=== PATIENT | male | born 1975 | race Caucasian/White ===

== ENCOUNTER 2017-05-18 10:02 | Emergency (ER) | payer MEDICAID, OTHER, SELFPAY ==
[~2017-05-18] VITALS: Ht 180.3 cm; Wt 59.7 kg
[2017-05-18] MEDS ORDERED: SODIUM CHLORIDE FLUSH 10ML SYR IVF ONE (10:30)
[2017-05-18] MEDS ORDERED: SODIUM CHLORIDE 0.9% 1,000ML IVBOLUS ONE (10:30)
[2017-05-18] MEDS ORDERED: THIAMINE 100MG TABLET PO ONE (10:30)
[2017-05-18] MEDS ORDERED: KETOROLAC 60 MG/2 ML IV ONE (10:30)
[2017-05-18] MEDS ORDERED: THIAMINE 100MG TABLET ONE (10:46)
[2017-05-18] MEDS ORDERED: KETOROLAC 30 MG/1 ML ONE (10:46)
[2017-05-18 11:03] LABS: ALBUMIN 3.7 g/dL (3.4-5.0); ANION GAP 12 mmol/L (5-15); CALCIUM 8.5 mg/dL (8.5-10.1); CHLORIDE 104 mmol/L (98-107)
[2017-05-18 11:04] LABS: CREATININE 1.03 mg/dL (0.7-1.3)
[2017-05-18 11:50] LABS: BASOPHILS # (AUTO) 0.02 x10^3/uL (0-0.1); BASOPHILS % (AUTO) 0 % (0-1); EOSINOPHILS # (AUTO) 0.17 x10^3/uL (0-0.4); EOSINOPHILS % (AUTO) 3 % (1-7); LYMPHOCYTES # (AUTO) 0.94 x10^3/uL (1-3.4); LYMPHOCYTES % (AUTO) 14 % (22-44); MD SCAN; MEAN CORPUSCULAR HEMOGLOBIN 36.4 pg (27.5-34.5); MEAN CORPUSCULAR HGB CONC 34.2 g/dL (33.2-36.2); MEAN CORPUSCULAR VOLUME 106.3 fL (81-97); MEAN PLATELET VOLUME 8.1 fL (7.4-10.4); MONOCYTES # (AUTO) 0.19 x10^3/uL (0.2-0.8); MONOCYTES % (AUTO) 3 % (2-9); NEUTROPHILS # (AUTO) 5.55 x10^3/uL (1.8-6.8); NEUTROPHILS % (AUTO) 81 % (42-75); PLATELET COUNT 201 x10^3/uL (130-400); RED BLOOD COUNT 4.43 x10^6/uL (4.38-5.82); RED CELL DISTRIBUTION WIDTH 13.3 % (9.4-14.8)
[2017-05-18 12:43] VITALS: BP 123/82
== END 2017-05-18 13:12 | disposition home or self-care (01) ==
LOC: ED 11:43
DX: M79.1 Myalgia (principal); F10.20 Alcohol dependence, uncomplicated; Z72.89 Other problems related to lifestyle; Z59.0 Homelessness
CPT/HCPCS: 36415; 71045; 80048; 82040; 85025; 93005; 96361; 96374; 99285; J1885; J7030